=== PATIENT | female | born 1955 | race Caucasian/White ===

== ENCOUNTER 2016-12-23 06:51 | Day surgery (SDC) | payer OTHER ==
[~2016-12-23] VITALS: Ht 149.9 cm; Wt 117.3 kg
[~2016-12-23 06:51] MED LIST: ATOR80TA75 PO; HYD25 PO; INSU100V27 SC; LANT3I SC; LOSA50TA6 PO; NAPR275T83 PO
[2016-12-23 08:14] VITALS: Ht 149.9 cm; Wt 117.3 kg
[2016-12-23] MEDS ORDERED: PROPOFOL 60 ML ONE (08:34)
[2016-12-23] MEDS ORDERED: LIDOCAINE 100 MG SYRINGE ONE (08:34)
[2016-12-23] MEDS ORDERED: FENTAnyl 50 MCG/ML VIAL ONE (08:35)
[2016-12-23 08:58] VITALS: BP 142/81; PULSE 85; RESP 18
[2016-12-23 09:35] VITALS: BP 125/60; PULSE 84; RESP 16
--- NOTE | 2016-12-23 09:41 | GILP ---
DATE OF PROCEDURE: NAME OF PROCEDURE: Colonoscopy. SURGEON: Sophie Quigley MD PREOPERATIVE DIAGNOSIS: Positive occult blood in stool. POSTOPERATIVE DIAGNOSES 1. Colonoscopy all the way to the cecum. Poor prep making the exam somewhat suboptimal. 2. Internal hemorrhoids. 3. No gross neoplasm was identified. INDICATION FOR THE PROCEDURE: Ms. John Medellin is a 61-year-old female patient who was noted to have positive occult blood in stool. The patient never had screening colonoscopy. The procedure and possible complications are well explained to the patient, she understood and conse nted to the procedure. DESCRIPTION OF PROCEDURE: Under the influence of anesthesia, the colonoscope was carefully introduc ed in the rectum and under direct vision, it was advanced all the way to the cecum. FINDINGS: The patient had some solid stool in the cecum and poor prep with scattered stool all over , making the exam suboptimal. The patient was noted to have internal hemorrhoids. No gross neoplas m was identified. She tolerated the procedure very well and there was no complication from the procedure. At the end of the procedures, she was awake with stable vital signs and she was discharged home to the care of her family. IMPRESSION: 1. Colonoscopy all the way to the cecum. 2. Poor prep with some solid stool in the cecum and scattered all around, making the exam suboptima l. 3. Internal hemorrhoids. 4. No gross neoplasm was identified. PLAN: Because of the poor prep and suboptimal nature of the examination. Would recommend repeat col onoscopy with better preparation in 1 year. Dictated By: SOPHIE KAUFMAN/JOSE LUIS Conf#: [id number] DID#: [id number]
== END 2016-12-23 12:10 | disposition home or self-care (01) ==
LOC: GIL 06:51
PROVIDERS: ATTEND Internal Medicine Gastroenterology
DX: K92.1 Melena (principal); K64.8 Other hemorrhoids; I10 Essential (primary) hypertension; E11.9 Type 2 diabetes mellitus without complications
CPT/HCPCS: 45378; 82962; J2001; J3010; Z7610

== ENCOUNTER 2018-08-30 05:37 | Day surgery (SDC) | END 2018-08-30 10:30 | disposition home or self-care (01) ==